=== PATIENT | male | born 1950 | race Caucasian/White ===

== ENCOUNTER 2019-11-01 07:09 | Day surgery (SDC) | payer OTHER ==
[~2019-11-01] VITALS: Ht 172.7 cm; Wt 77.6 kg
[~2019-11-01 07:09] MED LIST: ASPIRIN EC81 MG PO; FLEXERIL10 MG PO; IBUPROFEN200 MG PO; LISINOPRIL PO; NORCO 5-325 TA1 EACH PO; SYNTHROID137 MCG PO; TYLENOL325 MG PO; VALIUM5 MG PO
--- NOTE | 2019-11-01 08:41 | NUR ---
11/01/19 0841 Diana Roberts 0807 PATIENT ARRIVES TO PACU RESTING WITH EYES CLOSED. ANSWERS QUESTIONS APPROPRIATELY, BUT VERY DROWSY. RESP EVEN AND UNLABORED, ROOM AIR SATS >97%. PATIENT DENIES NEEDS THEN BACK TO SLEEP.
--- NOTE | 2019-11-01 12:20 | OR ---
[facility] [address], [place] [address] Signed DATE OF OPERATION: 11/01/2019 SURGEON: Hudson Maurer MD PREOPERATIVE DIAGNOSIS: Sister with colonic polyps, early 60s. POSTOPERATIVE DIAGNOSES: 1. A 5 mm polyp at 65 cm. 2. Minimal internal hemorrhoids. PROCEDURE: Colonoscopy with hot biopsy. ESTIMATED BLOOD LOSS: None. INDICATIONS: Nicolette is a 68-year-old gentleman, asked to see me for his initial colonoscopy. He told me his younger sister had colonic polyps removed in early 60s. He has no lower GI complaints. In the office, I gave him a pamphlet on colonoscopy and we looked at that together in detail. He understands the nature of the test along with the risks including, but not limited to gas bloating, crampy abdominal pain, bleeding, perforation requiring surgery, and missed diagnosis. We also reviewed the fact colonic polyps are grown, become cancer over 8-12 years. He understands that with his family history that he and his sister both should come every 5 years for repeat colonoscopies. We also reviewed the need for IV conscious sedation. He had expressed understanding and wished to proceed. DESCRIPTION OF PROCEDURE: Nicolette was taken into our endoscopy suite and placed in the left lateral decubitus position. He was given IV sedation with 3 mg of Versed and 100 mcg of fentanyl. A digital rectal exam was performed and he has a slightly enlarged and moderately indurated prostate gland. The left is more prominent than the right. The adult colonoscope was then introduced and advanced quite readily around into the cecum itself. His prep was quite good. We could easily see the appendiceal orifice and the ileocecal valve. The scope was slowly withdrawn. We saw a single polyp back at 65 cm. It was easily removed with the help of hot biopsy forceps. There was no diverticulosis. The rectum was unremarkable. Upon retroflexion of scope, he does have minimal internal hemorrhoid tissue. The gas was then suctioned out and the colonoscope removed. Nicolette Electronically Signed By: HUDSON MAURER MD 11/01/19 1220 PATIENT NAME: NICOLETTE URENA OPERATIVE REPORT DATE OF : 54 REPORT #: [id number] PHYSICIAN: HUDSON MAURER MD PCP: NANI ODONNELL MD REPORT IS CONFIDENTIAL AND NOT TO BE RELEASED WITHOUT AUTHORIZATION [facility] [address] [place] [id number] Signed tolerated the procedure quite well. RECOMMENDATIONS: I will see Nicolette back in my office in 7 to 14 days to review his results. He should consider a repeat colonoscopy every 5 years. Hudson Maurer MD ALB/MODL /[id number] cc: MD Dennis Cedeno MD Copies: HUDSON MAURER MD, TIMOTHY MD ~ Electronically Signed By: HUDSON MAURER MD 11/01/19 1220 PATIENT NAME: NICOLETTE URENA OPERATIVE REPORT DATE OF : 54 REPORT #: [id number] PHYSICIAN: HUDSON MAURER MD PCP: NANI ODONNELL MD REPORT IS CONFIDENTIAL AND NOT TO BE RELEASED WITHOUT AUTHORIZATION
== END 2019-11-01 09:50 | disposition home or self-care (01) ==
LOC: OPS 07:09 → DS 07:09 → OPS 08:15
PROVIDERS: Colon & Rectal Surgery
PROC: 0DBE8ZZ Excision of Large Intestine, Via Natural or Artificial Opening Endoscopic (ICD-10-PCS; principal; 2019-11-01 08:15)
DX: Z12.11 Encounter for screening for malignant neoplasm of colon (principal); D12.6 Benign neoplasm of colon, unspecified; K64.8 Other hemorrhoids; I10 Essential (primary) hypertension; E03.9 Hypothyroidism, unspecified; Z83.71 Family history of colonic polyps; Z79.899 Other long term (current) drug therapy
CPT/HCPCS: 88305; 99153; G0500; J2250; J3010; J7121

== ENCOUNTER 2022-11-05 14:48 | Observation (INO) | payer MEDICARE ==
[~2022-11-05] VITALS: Ht 172.7 cm; Wt 73.6 kg
--- OUTSIDE RECORDS SUMMARY | ~2022-11-05 | XMS | Continuity of Care Document ---
Demographics + + + | Address | [address] | | | [place] [address] | + + + | Preferred Language | Unknown | + + + | Marital Status | Never | + + + | Druze Affiliation | Unknown | + + + | Race | White | + + + | Ethnic Group | Unknown | + + + Author + + + | Author | [facility] | + + + | Organization | [facility] | + + + | Address | [address] [facility] | | | [place] [address] | + + + | Phone | | + + + Care Team Providers + + + + | Care Recovery Analyst Name | Role | Phone | + + + + Unavailable | Unavailable | + + + + Allergies and Intolerances + + + + + | date | description | facility | type | + + + + + | (no date) | No Known Allergies | [facility] | (unknown) | | | | | | + + + + + Encounters No information. Functional Status No information. Immunizations No information. Medications No information. Problems + + + + | date | description | facility | + + + + | 2022-11-03 15:01 | UNSPECIFIED ABDOMINAL PAIN | [facility] | | | | | + + + + | 2022-11-04 15:29 | UNSPECIFIED ABDOMINAL PAIN | [facility] | | | | | + + + + | 2022-11-04 15:29 | CHANGE IN BOWEL HABIT | [facility] | + + + + | 2022-11-04 15:30 | UNSPECIFIED ABDOMINAL PAIN | [facility] | | | | | + + + + | 2022-11-04 15:30 | CHANGE IN BOWEL HABIT | [facility] | + + + + | 2022-11-06 08:30 | UNSPECIFIED ABDOMINAL PAIN | [facility] | | | | | + + + + | 2022-11-06 08:30 | CHANGE IN BOWEL HABIT | [facility] | + + + + Procedures No information. Results/Labs No information. Social History No information. Vital Signs No information."
--- OUTSIDE RECORDS SUMMARY | ~2022-11-05 | XMS | Continuity of Care Document ---
Demographics + + + | Address | [address] [facility] [facility] | | | [place] [address] | + + + | Preferred Language | Unknown | + + + | Marital Status | Never | + + + | Jainism Affiliation | Unknown | + + + | Race | White | + + + | Ethnic Group | Unknown | + + + Author + + + | Author | [facility] | + + + | Organization | [facility] | + + + | Address | [address] [facility] | | | [place] [address] | + + + | Phone | | + + + Care Team Providers + + + + | Care Freight Traffic Consultant Name | Role | Phone | + [...]
--- OUTSIDE RECORDS SUMMARY | ~2022-11-05 | XMS | Continuity of Care Document ---
Demographics + + + | Address | [address] [facility] | | | [place] [address] | + + + | Preferred Language | Unknown | + + + | Marital Status | Never | + + + | Worship Affiliation | Unknown | + + + | Race | White | + + + | Ethnic Group | Unknown | + + + Author + + + | Author | [facility] | + + + | Organization | [facility] | + + + | Address | [address] [facility] | | | [place] [address] | + + + | Phone | | + + + Care Team Providers + + + + | Care Wilton Weaver Name | Role | Phone | + [...]
[2022-11-05] MEDS ORDERED: FAMOTIDINE20 MG PO (15:17)
[2022-11-05] MEDS ORDERED: TIZANIDINE HCL2 MG PO (15:17)
[2022-11-05] MEDS ORDERED: FLUTICASONE PRO16 GM NAS (16:51)
[2022-11-05] MEDS ORDERED: LEVOTHYROXINE150 MCG PO (16:52)
[2022-11-05 19:15] VITALS: BP 120/82
--- NOTE | 2022-11-05 19:43 | NUR ---
PATIENT ADMITTED TO [facility] ROOM 123. COMPLETED ADMISSION. GALLBLADDER BOOKLET PROVIDED. IV FLUIDS STARTED. PATIENT VERBALIZED DOES TAKE LISNOPRIL, UNSURE OF DOSE, WILL HAVE SIGNIFICANT OTHER BRING IN. FULL BODY ASSESSMENT COMPLETED, WNL. PATIENT RATES PAIN 0/10 ON PAIN SCALE AT THIS TIME.
--- NOTE | 2022-11-05 19:52 | NUR ---
IN ROOM TO HANG IV FLUIDS DIRECTED, IV SITE WNL. pt EDUCATED ON S/SX OF FLUID INFILTRATION, pt VERBALIZED UNDERSTANDING. NO ADDITIONAL NEEDS OR CONCERNS VERBALIZED, CALL LIGHT IN REACH. PRIMARY RN UPDATED.
[2022-11-05] MEDS ORDERED: ZESTRIL5 MG PO (20:44)
[2022-11-06] VITALS (8 sets, daily range): BP systolic 114–138; BP diastolic 63–89
--- NOTE | 2022-11-06 00:40 | NUR ---
PATIENT RESTING WITH EYES CLOSED. NO NEEDS AT THIS TIME. CALL LIGHT WITHIN REACH. PATIENT NPO STARTING AT MIDNIGHT. IV FLUIDS INFUSING.
--- NOTE | 2022-11-06 02:00 | NUR ---
PATIENT RESTING EASY WITH EYES CLOSED, APPEARS COMFORTABLE. CALL LIGHT WITHIN REACH NO OTHER NEEDS AT THIS TIME.
--- NOTE | 2022-11-06 04:00 | NUR ---
ADMINISTERED TORADOL IV PER MAR, PATIENT COMPLAINTS OF ASHLEY AND BACK PAIN. PAIN MEDICATION EFFECTIVE, PATIENT REPORTS ASHLEY AND BACK PAIN RESOLVED. CONSENT FOR SURGERY SIGNED. ANSWERED QUESTIONS ABOUT INFORMATION READ IN GALLBLADDER BOOKLET. PATIENT STATED " I AM FEELING NERVOUS ABOUT HAVING SURGERY" PROVIDED PATIENT WITH REASSURANCE. NO OTHER NEEDS AT THIS TIME.
--- NOTE | 2022-11-06 04:15 | NUR ---
ADMINISTERED PAIN MEDICATION PER MAR. PATIENT RATE PAIN 5/10 ON PAIN SCALE, STATES " MY BUTT IS THROBBING" GOOD URINE OUTPUT. PROVIDED FRESH ICE WATER. NO OTHER NEEDS AT THIS TIME.
--- NOTE | 2022-11-06 05:49 | NUR ---
ASSESSMENT DONE. LR WITH STRAIGHT TUBING HANGING IN ROOM. VS WNL. ANSWERED QUESTIONS AND CONCERNS. PATIENT RATES PAIN 0/10 ON PAIN SCALE. NO OTHER NEEDS AT THIS TIME. CALL LIGHT WITHIN REACH. ADMINISTERED SECOND DOSE OF IV ANCEF PER JUN.
--- NOTE | 2022-11-06 07:55 | NUR ---
Assisted Pt with updating contact phone number on white board in room. Call light left in reach. No other needs expressed by Pt.
--- NOTE | 2022-11-06 07:56 | NUR ---
RECIEVED SHIFT REPORT. PT AWAKE IN BED, AWAKE. DENIES ANY NEEDS AT THIS TIME. CALL LIGHT IN REACH
--- NOTE | 2022-11-06 09:46 | NUR ---
MORNING ASSESSMENT COMPLETE. PT AWAKE IN BED, DENIES PAIN OR NAUSEA. BOWEL TONES ACTIVE IN ALL QUADRANTS. TENDER IN RUQ. DENIES FURTHER NEEDS. CALL LIGHT IN REACH.
--- NOTE | 2022-11-06 13:21 | NUR ---
11/06/22 1321 Lynn Valadez 1259- PT ARRIVED TO PACU, SEMI RALPH POSITION, SNORING RESPIRATIONS. PT O2SATS 97% ON ROOM AIR, REQUIRING INTERMITTENT JAW THRUST. NO RESPONSE WITH STIMULI AT THIS TIME. PT PUPILS PIN POINT, CONTINUE TO MONITOR, LR INFUSING TO LFA IV. DRESSINGS INTACT TO ABD INCISION, CDI. MÓNICA DRAIN TO RLQ WITH SCANT AMOUNT OF SEROSANGINOUS FLUID. MONITORS IN PLACE, SCD'S BILATERALLY. ABD SOFT, NON DISTENDED. PT HEAD REPOSITIONED TO ASSIST AIRWAY. 1315- PT RESPONSIVE TO PAINFUL STIMULI, PT OPENS EYES AND MUMBLES WORDS THAT CAN BE RECOGNIZED. PT DENIES PAIN AND NAUSEA AT THIS TIME. ENCOURAGED TO TAKE DEEP BREATHS. CONTINUE TO MONITOR.
--- NOTE | 2022-11-06 13:48 | NUR ---
RECIEVED PT FROM SURGERY, BEDSIDE REPORT RECIEVED FROM MARCELA RAMIREZ. PT DENIES NAUSEA OR PAIN AT THIS TIME. PT IS DROWSY, EASY TO AROUSE. ABD HYPOACTIVE IN ALL QUADRANTS. DRESSINGS OVER SURGICAL SITES INTACT, SCANT SHADOWING NOTED. MÓNICA DRAIN INTACT. CPOX IN PLACE SPO2 95% ON RA. VSS. CALL LIGHT IN REACH.
--- NOTE | 2022-11-06 14:45 | NUR ---
RECEIVED REPORT ON PT. ASSISTED PT TO BATHROOM WITH URINAL. PT STEADY ON FEET.
--- NOTE | 2022-11-06 14:50 | NUR ---
POST OP ASSESSMENT COMPLETE. NO NEW CHANGES. VSS. CPOX AND SCDS IN PLACE. REPORTS PAIN IS DULL, REFUSED PAIN MEDS. CALL LIGHT IN REACH.
--- NOTE | 2022-11-06 15:50 | NUR ---
POST OP ASSESSMENT COMPLETE. PT RESTING IN BED, EYES CLOSED, EASY TO AROUSE. VSS. DENIES PAIN. DRESSING REMAIN INTACT. SMALL AMOUNT OF DRAINAGE NOTED TO LEFT INCISION SITE UNDER DRESSING. DENIES FURTHER NEEDS. TOLERATING WATER. CALL LIGHT IN REACH
--- NOTE | 2022-11-06 16:40 | NUR ---
spoke with pt. He denies needs. Lives with his and 3 children. Plans on dc to home when cleared medically. 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 States he is extremely active. Family will assist him. He is a and uses the [employer].
--- NOTE | 2022-11-06 17:14 | NUR ---
MED REC COMPLETE
--- NOTE | 2022-11-06 18:00 | HP ---
[facility] [address] [place], [place] [address] Signed ADMISSION DATE: 11/05/2022 REASON FOR ADMISSION: Acute calculous cholecystitis. HISTORY OF PRESENT ILLNESS: This 71-year-old white man presented to the emergency room upon recommendation of his primary care physician in [place]. He was seen on Thursday this week with complaints of right subscapular pain and recent heavy duty activity. He does work for a company from time to time. A CT scan was performed yesterday and said to have shown gallstones. His primary provider asked him to report to the emergency room for further assessment. The patient has been having pain in the right subcostal area as well as the right subscapular area for several days at least a week in fact. He did undergo a gallbladder ultrasound today, which showed multiple gallstones in the gallbladder with mild gallbladder wall thickening and a positive Russ sign. Bilateral renal cysts were noted as well, but there was no evidence of hydronephrosis. The patient has variable levels of discomfort, but the pain is persistent including the right subcostal and right subscapular area. He has been recommended for admission to anticipate cholecystectomy preferably tomorrow. Notably, the patient ate today. He has had no nausea or vomiting. He has had symptoms longstanding highly suggestive of biliary colic. PAST MEDICAL HISTORY: Notable for hypothyroidism as well as self described hypertension. He has had rotator cuff operation in the past and operation for kidney stones as well. He is a former smoker. ALLERGIES: He has no known drug allergies. CURRENT MEDICATIONS: Include tizanidine 2 mg as well as famotidine 20 mg p.o. b.i.d. He also takes Synthroid unknown dose, but probably 150 mcg p.o. daily. He says he has taken an antihypertensive, but it is not listed in his medical record nor in the pharmacy record. Electronically Signed By: DAVID TORRES MD 11/06/22 1800 PATIENT NAME: NICOLETTE URENA HISTORY AND PHYSICAL DATE OF : 54 REPORT #: [id number] PHYSICIAN: DAVID TORRES MD PCP: LATOYA PINO DO REPORT IS CONFIDENTIAL AND NOT TO BE RELEASED WITHOUT AUTHORIZATION [facility] [address] [place] [id number] Signed SOCIAL HISTORY: He is , lives in [place]. 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 That will be clarified in time. He does have several children, who live with him, one or two that have autism and another that has other issues or dysfunction. He is . REVIEW OF SYSTEMS: He denies any dysphagia or hematemesis. No blood per rectum. No nausea or vomiting. He does have persistent pain in the subscapular area in the right as well as less pain, but persistent pain in the right subcostal area. PHYSICAL EXAMINATION: GENERAL: This is a bearded white man, who looks to be fit and healthy. 5 feet 8 inches in height, 273.6 kg with a BMI of 24.7. HEENT: Trachea is midline. He has a significant overbite. He is able to open his mouth very widely. Mucous membranes are moist. CHEST: Clear. HEART: Regular without murmur. Trachea is midline. ABDOMEN: Nondistended. He has mild tenderness in right subcostal area. There is no palpable mass and he has no ascites. EXTREMITIES: Show no clubbing, cyanosis, or edema. LABORATORY STUDIES: Show a white count of only 8.1, hematocrit 40.5, platelets 231,000. Chem profile is essentially normal. Creatinine is elevated at 1.22. Liver enzymes are normal, bilirubin also normal at 0.5, lipase normal at 120. I have reviewed his ultrasound in detail. Gallstones are quite obvious. CT scan of the abdomen performed on November 04 (yesterday) confirmed gallstones with some suggestive acute cholecystitis and bilateral renal lesions demonstrating internal density variability. They are most consistent with benign cyst. He has a large hiatal hernia and bilateral inguinal hernias with fat and without hollow viscus. My review of the CT scan shows large stones and a thickened gallbladder wall. ASSESSMENT: The patient has acute calculous cholecystitis and rather typical biliary colic symptoms leading up to today. The patient was somewhat ambivalent about being admitted to the hospital for further treatment. I strongly recommended this. We can initiate IV antibiotics, parenteral pain medication, anticipating cholecystectomy tomorrow, preferably by laparoscopic approach. The risk of bleeding, infection, bile duct injury, need for open procedure, need for common duct exploration and other unforeseen complications were all reviewed in detail. He understands and agrees to proceed. Electronically Signed By: DAVID TORRES MD 11/06/22 1800 PATIENT NAME: NICOLETTE URENA HISTORY AND PHYSICAL DATE OF : 54 REPORT #: [id number] PHYSICIAN: DAVID TORRES MD PCP: LATOYA PINO DO REPORT IS CONFIDENTIAL AND NOT TO BE RELEASED WITHOUT AUTHORIZATION [address] [address] Signed We will plan to initiate Ancef antibiotic and Pepcid intravenously administered. Monitoring his blood pressure and treating as appropriate. Notably, his blood pressure in the emergency room has been quite acceptable and the degree to which ongoing problem is uncertain. MD JAYANT Rene/ERISL /[id number] cc: Cecil Argueta MD Copies: CECIL ARGUETA MD ~ Electronically Signed By: DAVID TORRES MD 11/06/22 1800 PATIENT NAME: NICOLETTE URENA HISTORY AND PHYSICAL DATE OF : 54 REPORT #: [id number] PHYSICIAN: DAVID TORRES MD PCP: LATOYA PINO DO REPORT IS CONFIDENTIAL AND NOT TO BE RELEASED WITHOUT AUTHORIZATION
--- NOTE | 2022-11-06 18:30 | NUR ---
ROUNDED ON PT. EMPTIED MÓNICA DRAIN. TOOK PT FOOD TRAY. CALL LIGHT WITHIN REACH NO FURTHER NEEDS VOICED.
--- NOTE | 2022-11-06 20:00 | NUR ---
PT assesed, complains of mild pain after getting up to use the bathroom. Noted RUQ incision was bloody ( half the dressing saturated) Will continue to monitor. head of stock notified to look at it.
--- NOTE | 2022-11-06 20:47 | NUR ---
VITALS DOCUMENTED. PT REQUESTED TO GO TO THE BATHROOM. PT WAS A SBA TO THE BATHROOM AND USED THE URINAL. PT STATED THE INCISION REGION IS "SORE". TAMIA RN, IN TO GIVE MEDICATION AND DOCUMENT I&Os.
[2022-11-07 01:17] VITALS: BP 114/69
[2022-11-07 05:09] VITALS: BP 128/84
--- NOTE | 2022-11-07 07:43 | NUR ---
RECIEVED SHIFT REPORT. PT AWAKE IN BED, DENIES ANY DISCOMFORTS. ASSESSED INCISION SITE WITH MARCELA CANTRELL. DRESSING INTACT, DRAINAGE NOTED, 50% OF DRESSING. STERI STRIPS INTACT. MÓNICA DRAIN INTACT, SMALL DRAINAGE NOTED TO DRESSING. CALL LIGHT IN REACH.
--- NOTE | 2022-11-07 09:39 | NUR ---
MORNING ASSESSMENT COMPLETE. PT AWAKE IN BED. BRIAN IN ROOM REMOVED DRESSING OVER INCISION SITE AND MÓNICA. CLEAN STERI STRIPS APPLIED TO INCISION SITE PER BRIAN VERBAL ORDER. BOWEL TONES ACTIVE IN ALL QUAD. TENDER. PT STATES 5/10 PAIN, REFUSES PAIN MEDICATION AND WANTS TO JUST RELAX. PT IS WILLING TO WALK LATER. DENIES FURTHER NEEDS. CALL LIGHT IN REACH.
[2022-11-07 10:06] VITALS: BP 1212/82
--- NOTE | 2022-11-07 11:15 | NUR ---
patient complains of 4/10 abd pain, prn pain medication administered (per emar). patrice drained- 30ml serousang in color. denies further needs at this time.
--- NOTE | 2022-11-07 11:52 | NUR ---
PT IN BED. TALKED AT LENGTH OF HIS INVOLVEMENT WITH YARSANI SIKHISM. EXPRESSED HOPE FOR HEALING. WE PRAYED FOR HEALING AND RETURN OF STRENGTH. REQUESTED BED MACHINE OPERATOR VISIT WHICH I RELAYED VIA NOTE IN SACRISTRY PER USUAL PROCEDURE.
--- NOTE | 2022-11-07 12:00 | NUR ---
REPORT RECEIVED FROM MARCELA STAUFFER. PT SITTING UP IN BED. PT RESPONDS WHEN ADDRESSED. PT DENEIS ANY NEEDS AT THIS TIME. CALL LIGHT IN REACH.
--- NOTE | 2022-11-07 13:17 | NUR ---
IN TO ANSWER CALL LIGHT. PT REPORTING SCD PUMP ALARMING, RESOLVED. PT REPOTS GETTING UP TO USE RESTROOM AND REPLACING SCD's BY SELF. URINAL EMPTIED. PT STATES "I FEEL LIKE I NEED TO HAD A BM, BUT NOTHING IS HAPPENING." ASKED PT IF PT HAS PASSED ANY GAS AND PT STATES "ONLY BURPING, NOTHING ELSE." ASSESSMENT COMPLETE. LUNG SOUNDS CLEAR. BOWEL TONES ACTIVE. MILD ABD DISTENTION NOTED. ABD FIRM TO TOUCH. ABD TENDER. RUQ SURGICAL SITE DRESSING OF STERI-STRIPS D/I WITH SMALL AMOUNT OF SHADOWING NOTED. UMBILICUS DRESSING D/I WITH SMALL AMOUNT OF SHADOWING NOTED. RLQ MÓNICA DRAIN WITH GAUZE PAD OVER SITE C/D/I. MÓNICA EMPTIED 10ML OF SEROSANGUINEOUS FLUID. VITALS AND I&Os COMPLETE. PRN MOTRIN ADMINISTERED, SEE MAR. NEW BAG OF FLUIDS STARTED, SEE MAR. PT DENIES ANY OTHER NEEDS AT THIS TIME. CALL LIGHT IN REACH.
[2022-11-07 13:28] VITALS: BP 122/76
--- NOTE | 2022-11-07 15:30 | NUR ---
PT AMBULATING MCRAE WITH MARCELA RENEE. NO NEEDS FROM THIS RN AT THIS TIME.
--- NOTE | 2022-11-07 16:11 | NUR ---
IN TO ROUDN ON PT. PT REPORTING PAIN 5/10 IN ABD. PT DENIES ANYTHING FOR PAIN WHEN OFFERED. PT DENIES HOT/ICE PACK WHEN OFFERED. PROVIDED PT PILLOW FOR ABD. PT DENIES ANY OTHER NEEDS AT THIS TIME. CALL LIGHT IN REACH.
[2022-11-07 17:24] VITALS: BP 136/85
[2022-11-07 20:03] VITALS: BP 127/78
--- NOTE | 2022-11-07 21:26 | NUR ---
Pt says pain is still present, and tenderness present. ABD distended compared to yesterday. Gave ibuprofen, tizanadine. will continue to monitor.
--- NOTE | 2022-11-08 02:08 | NUR ---
Took pt to the bathroom, pt passed a lot of gas. Walked with patient around the unit 2 laps. Abd slightly more softer, pain still present, gave tylenol and ibuprofen. Trying to avoid opoids if possible.
--- NOTE | 2022-11-08 07:26 | NUR ---
RECEIVED REPORT FROM [facility] NURSE. PT IS UP TO CHAIR IN ROOM. STATES HE IS PASSING GAS. MÓNICA DRAIN INTACT. CALL LIGHT WITHIN REACH.
--- NOTE | 2022-11-08 08:20 | NUR ---
PT ASSESSMENT AND MEDICATION ADMINISTRATION COMPLETED. PT IS A/O, RESPIRATIONS EVEN AND REGULAR. PT STATES HE CONTINUES TO PASS GAS, NO BM, ABDOMEN REMAINS FIRM BUT PT STATES IT HAS DECREASED. MÓNICA DRAIN INTACT. HAS HAD 70ML OUTPUT THIS MORINING. CALL LIGHT WITHIN REACH.
[2022-11-08 09:29] VITALS: BP 122/69
[2022-11-08] MEDS ORDERED: OXYCODON-ACETA1 EAC2 PO (10:24)
[2022-11-08] MEDS ORDERED: ACETAMINOPHEN500 MG PO (10:24)
[2022-11-08] MEDS ORDERED: IBUPROFEN600 MG PO (10:24)
--- NOTE | 2022-11-08 10:33 | NUR ---
AT BEDSIDE. MÓNICA DRAIN REMOVED. PT PLANS TO DC TODAY. CALL LIGHT WITHIN REACH.
--- NOTE | 2022-11-08 11:02 | OR ---
[facility] [address], [place] [address] Signed DATE OF OPERATION: 11/06/2022 SURGEON: David Torres MD PREOPERATIVE DIAGNOSIS: Acute calculous cholecystitis; long-standing chronic subscapular and right subcostal pain. POSTOPERATIVE DIAGNOSIS: Severe acute on chronic calculous cholecystitis. PROCEDURE: 1. Laparoscopic cholecystectomy with conversion to open operation (prolonged, complicated, difficult). 2. Surgeon-directed fluoroscopy with intraoperative cholangiogram. ANESTHESIA: General endotracheal, Noah Leonard, VISUAL BASIC PROGRAMMER and local 10 mL of 0.25% Marcaine with epinephrine. INDICATION: This 71-year-old white man is a patient of Dr. Latoya Pino in [place]. The patient has had long-standing chronic back pain including right subscapular pain and more recently increasing right subcostal pain. He underwent a CT scan under the direction of Dr. Pino, which showed probable acute cholecystitis and he was directed to be seen at the ER. Evaluation there by Dr. Argueta included a gallbladder ultrasound confirming multiple gallstones. The patient does have mild tenderness in the right subcostal area, but his dominant complaints now and previously has been subscapular pain on the right side. He has been admitted, given intravenous antibiotics, parenteral pain medication and so forth, and recommended to undergo cholecystectomy preferably by laparoscopic approach. He understands the risk of bleeding, infection, bile duct injury, need for open procedure, failure to cure his symptoms and other unforeseen complications and wished to proceed. FINDINGS: Impressive acute on chronic cholecystitis was noted. The gallbladder was quite tense and distended and inflamed and markedly thickened. Decompression of the gallbladder was undertaken showing clear bile. The infundibulum and surrounding structures were absolutely fused within the alysha hepatis for which a cholecystectomy by laparoscopic approach would be quite impossible and on that basis, open cholecystectomy was Electronically Signed By: DAVID TORRES MD 11/08/22 1102 PATIENT NAME: NICOLETTE URENA OPERATIVE REPORT DATE OF : 54 REPORT #: [id number] PHYSICIAN: DAVID TORRES MD PCP: LATOYA PINO DO REPORT IS CONFIDENTIAL AND NOT TO BE RELEASED WITHOUT AUTHORIZATION [facility] [address] [place], [place] [address] Signed performed. Even open cholecystectomy was challenging, but was accomplished safely noting multiple large gallstones, one of which was wedged in the infundibulum. Intraoperative cholangiogram, however, was completely normal. The liver was normal otherwise. DESCRIPTION OF PROCEDURE: The patient was brought to the operating room, given a general endotracheal anesthetic. Preoperative antibiotic, Ancef was given. Sequential compression device stockings were used and heparin subcutaneously administered. The abdomen was clipped and prepared with a chlorhexidine solution and draped sterilely. The patient did not have excessive abdominal wall body fat. An infraumbilical incision was made and using an open Tj cannula technique pneumoperitoneum was achieved to a level of 14 mmHg of carbon dioxide gas. Intra-abdominal inspection showed no sign of ascites or carcinomatosis. The gallbladder was obscured from view noting dense adhesions of omentum to the upper quadrant on the right side. Three additional trocars were placed in usual configuration in the subxiphoid, right midclavicular, and right anterior axillary line. This allowed for manipulation of the omentum which was draped over the gallbladder. It is found to be densely adherent to it. With various manipulations predominantly with blunt dissection, the omentum could be more fully freed from the gallbladder. The gallbladder was quite thickened and markedly inflamed and distended and unable to be grasped in the usual way. On that basis, laparoscopic trocar decompression was undertaken of the gallbladder, which showed dark bile, predominantly though, there was clear bile at the end. This allowed for the gallbladder to be grasped and elevated cephalad. Despite this severely dense inflammation, omental adhesions to the gallbladder in the midportion and ultimately to the infundibulum was noted. The duodenum could be identified, but was nearly fused with the gallbladder. Careful manipulation with blunt electrocautery dissection was undertaken and the duodenum was largely freed from the gallbladder. However, the alysha hepatis was one thickened and fused plate with the gallbladder and therefore a laparoscopic approach was deemed inadvisable. The trocars removed under direct visualization and the infraumbilical incision was reapproximated with interrupted 0 Vicryl suture. A right subcostal incision was made for open cholecystectomy connecting at least one of the trocar sites. Dissection was carried through the subcutaneous tissue with electrocautery. Additionally incising the anterior rectus sheath, the rectus muscle and the posterior rectus sheath and its attended peritoneum. The abdomen was then entered. Marked inflammation in infundibulum area and the alysha hepatis was noted. The Bookwalter retractor was affixed to the table providing good exposure. A ring clamp was applied to the apex of the gallbladder and the thickened peritoneum was incised with electrocautery and with meticulous care, blunt dissection and cautery dissection was used to free the gallbladder down to the area of the infundibulum. The infundibulum was not well defined, but ultimately was found to be directed directly into the alysha hepatis at a right angle. Further dissection was Electronically Signed By: DAVID TORRES MD 11/08/22 1102 PATIENT NAME: NICOLETTE URENA OPERATIVE REPORT DATE OF : 54 REPORT #: [id number] PHYSICIAN: DAVID TORRES MD PCP: LATOYA PINO DO REPORT IS CONFIDENTIAL AND NOT TO BE RELEASED WITHOUT AUTHORIZATION [facility] [address] [place], [place] [address] Signed undertaken with meticulous care. The assistance of headlight and loupe magnification as usual. With Kittner dissecting devices blunt and electrocautery dissection. Ultimately, the infundibulum was well defined, which made a right angle to the gallbladder itself ultimately leading to the cystic duct. Stones were wedged into the infundibulum quite markedly. Ultimately, the cystic duct was well defined. A right angle clamp was used to milk any stone debris back into the gallbladder and the cystic duct transected transversely. The gallbladder was taken out and multiple gallstones that had been in the gallbladder were photographed in conjunction with the gallbladder itself. There was no sign of neoplasm associated with the gallbladder. Clear and normal bile was noted to egress from the cystic duct. Using a HIDA catheter, intraoperative cholangiography was then undertaken. Free flow of contrast was noted into the cystic duct and into the biliary tree and prompt emptying into the duodenum without sign of filling defect. Retrograde filling of the common hepatic duct was noted. There was no sign of anomaly or other problem. The catheter was then removed after re-assembling the Bookwalter device for exposure and a small cystic arterial branch dissected free from the cystic duct and doubly clipped with small clips. Ultimately, the dominant cystic duct clipped with large clips. Irrigation was undertaken. Hemostasis was good overall. Through a right-sided trocar site, a 7 mm flat Van drain was placed in the subhepatic space. The omentum was allowed to reapply to the subhepatic space. Attention was then turned toward closure. The posterior sheath and its attendant peritoneum were reapproximated with running PDS suture. The muscular layer was irrigated. The anterior rectus sheath similarly closed and subcutaneous tissue irrigated and the skin closed with running subcuticular 3-0 Vicryl. The trocar sites that remained were irrigated and closed with interrupted 3-0 Vicryl. A 10 mL of 0.25% Marcaine with epinephrine was injected into the incision sites for postoperative analgesic benefit. The operation was prolonged, complicated, and difficult. Based on severity of disease, it was accomplished safely. MD JAYANT Rene/MODL /[id number] Electronically Signed By: DAVID TORRSE MD 11/08/22 1102 PATIENT NAME: NICOLETTE URENA OPERATIVE REPORT DATE OF : 54 REPORT #: [id number] PHYSICIAN: DAVID TORRES MD PCP: LATOYA PINO DO REPORT IS CONFIDENTIAL AND NOT TO BE RELEASED WITHOUT AUTHORIZATION [facility] [address], [place] [address] Signed cc: DO Raffy Hernandez MD Copies: NAT ARGUETA MD ~ Electronically Signed By: DAVID TORRES MD 11/08/22 1102 PATIENT NAME: NICOLETTE URENA OPERATIVE REPORT DATE OF : 54 REPORT #: [id number] PHYSICIAN: DAVID TORRES MD PCP: LATOYA PINO DO REPORT IS CONFIDENTIAL AND NOT TO BE RELEASED WITHOUT AUTHORIZATION
[2022-11-08 11:14] VITALS: BP 136/86
--- NOTE | 2022-11-10 14:57 | DS ---
[facility] [address] [place], [place] [address] Signed ADMISSION DATE: 11/05/2022 DISCHARGE DATE: 11/08/2022 REASON FOR ADMISSION: This 71-year-old white man presented to the emergency room upon recommendation of his primary care physician in [place], Dr. Latoya Pino DO. 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 A CT scan was performed, which confirmed a high probability of acute cholecystitis and he was directed to the emergency room here for further evaluation and treatment. He was evaluated by Dr. Argueta, whose evaluation included a gallbladder ultrasound in addition to CT scan that had been obtained recently. The ultrasound showed multiple gallstones in the gallbladder with mild gallbladder wall thickening and positive sonographic Russ sign. He was admitted for further evaluation and care. PERTINENT PHYSICAL EXAMINATION: GENERAL: Showed healthy white man, who looked to be in no significant distress particularly. VITAL SIGNS: Temperature is 98.4, blood pressure 127/78. NECK: Trachea is midline. CHEST: Clear. HEART: Regular without murmur. ABDOMEN: Nondistended. There is mild tenderness in right subcostal areas. No palpable mass. He had no ascites. EXTREMITIES: Show no clubbing, cyanosis, or edema. LABORATORY STUDIES: At presentation showed white count of 8.1, hematocrit 40.5, and platelets are 231,000. Chem profile essentially normal. Liver enzymes were normal, bilirubin 0.5. IMAGING DATA: Review of the CT scan and ultrasound confirmed multiple gallstones and diffusely inflamed area of the alyhsa hepatis. HOSPITAL COURSE: The patient was admitted, given intravenous fluid resuscitation, IV antibiotics and underwent operation on November 06, 2022. A laparoscopic approach was anticipated. The gallbladder was far more inflamed than had been anticipated clinically; decompression of gallbladder was required. There were dense omental adhesions to the gallbladder. The Electronically Signed By: DAVID TORRES MD 11/10/22 1457 PATIENT NAME: NICOLETTE URENA DISCHARGE SUMMARY DATE OF : 54 REPORT #: [id number] PHYSICIAN: DAVID TORRES MD PCP: LATOYA PINO DO REPORT IS CONFIDENTIAL AND NOT TO BE RELEASED WITHOUT AUTHORIZATION [facility] [address] [place], [place] [address] Signed gallbladder was found to have essentially no discernible plane in the area of the infundibulum in relation to the duodenum and alysha hepatis. On that basis, conversion to open operation was required. The operation was prolonged, complicated, difficult but accomplished safely with complete cholecystectomy as well as cholangiogram (which was normal). He had multiple large gallstones within the gallbladder wall, a very thickened gallbladder and a gallbladder, which would essentially be impossible to excise laparoscopically. A drain was placed. He had no bile leak or other problem. His postoperative course was unremarkable. He had progressive improvement, advanced to a regular diet on the first postoperative day. It was sore enough that he stayed an additional day and was able to be discharged on postop day#2. The drain that was placed showed no sign of bile leak or other problem and had only serous fluid by the day of discharge and was removed. FOLLOWUP: He is advised to lift no more than 20 pounds for the next four weeks. He will keep Steri-Strips in place. He should walk on a daily basis, but with no more than 20 pounds for four weeks. He will call on Thursday to schedule a followup appointment for four weeks more or less. DISCHARGE MEDICATIONS: 1. Motrin 600 mg p.o. q.6 hours as needed for pain #60, no refill. 2. Percocet 7.5/325, 1-2 p.o. q.6 hours p.r.n. pain, #10. 3. Tylenol Plain 500 mg two tablets p.o. q.6 hours as needed for pain #60, no refill. 4. He will continue his usual medication of Synthroid 150 mcg p.o. daily and lisinopril 5 mg p.o. daily. DISCHARGE DIAGNOSES: 1. Severe [id number] calculous cholecystitis, status post laparoscopic cholecystectomy with conversion to open cholecystectomy and cholangiogram on November 06, 2022. 2. Hypothyroidism. 3. Hypertension. David Torres MD Electronically Signed By: DAVID TORRES MD 11/10/22 1457 PATIENT NAME: NICOLETTE URENA DISCHARGE SUMMARY DATE OF : 54 REPORT #: [id number] PHYSICIAN: DAVID TORRES MD PCP: LATOYA PINO DO REPORT IS CONFIDENTIAL AND NOT TO BE RELEASED WITHOUT AUTHORIZATION [address] [address] Signed JAYANT/MICHELLE /[id number] cc: MD Latoya Hawk DO Copies: NAT ARGUETA MD ~ Electronically Signed By: DAVID TORRES MD 11/10/22 1457 PATIENT NAME: NICOLETTE URENA DISCHARGE SUMMARY DATE OF : 54 REPORT #: [id number] PHYSICIAN: DAVID TORRES MD PCP: LATOYA PINO DO REPORT IS CONFIDENTIAL AND NOT TO BE RELEASED WITHOUT AUTHORIZATION
--- NOTE | 2022-11-11 17:59 | PATH ---
[facility] [address] [place], [place] [address] Signed SPECIMEN(S): A GALLBLADDER AND STONES SPECIMEN SOURCE: A. GALLBLADDER AND STONES CLINICAL HISTORY: Cholecystitis, cholelithiasis. Acute calculous cholecystitis. FINAL PATHOLOGIC DIAGNOSIS: Gallbladder and stones: - Acute and chronic calculous cholecystitis. - Focal mucosal necrosis. JVR:vani:C2NR MICROSCOPIC EXAMINATION: Histologic sections of all submitted blocks are examined by light microscopy. These findings, together with the gross examination, support the pathologic diagnosis. GROSS DESCRIPTION: The specimen, labeled and designated "Thomasbarriearmando Cydney" and designated on the requisition "gallbladder and stones," is received in formalin and consists of Specimen: Markedly disrupted gallbladder. Dimensions: 9.2 x 4.0 x 3.5 cm. Serosa: Germain to red-brown, roughened. Cystic Duct: Received disrupted, obstruction cannot be determined, margin inked black and shaved. Calculi: Multiple brown irregularly-shaped calculi (1.2 to 2.0 cm in greatest dimension and 5.0 x 4.0 x 2.3 cm in aggregate). Mucosa: Red-brown, roughened and trabeculated. Wall thickness: 1.0 cm. Lymph node: No pericystic lymph nodes are grossly identified. Additional: None. Swinging Cut Off Saw Operator sections are submitted in (A1). AC (under the direct supervision of a pathologist) The Gross Description was prepared using a voice recognition system. The report was reviewed for accuracy; however, sound-alike word errors, addition and/or deletions may occur. If there is any question about this report, please contact Client Services. PATIENT NAME: NICOLETTE URENA PATHOLOGY DATE OF : 54 REPORT #: [id number] PHYSICIAN: SHEELA AHMADI PCP: LATOYA PINO DO REPORT IS CONFIDENTIAL AND NOT TO BE RELEASED WITHOUT AUTHORIZATION [facility] [address] [facility] [place] [address] Signed PERFORMING LABORATORY: Technical component was performed by [facility], [address] [place] [address] (CLIA# [id number]). Professional interpretation was performed by [facility] - [address] [address] (CLIA#: [id number]). Diagnostician: Genaro Hatch MD Pathologist Electronically Signed 11/11/2022 Copies: ~ PATIENT NAME: NICOLETTE URENA PATHOLOGY DATE OF : 54 REPORT #: [id number] PHYSICIAN: SHEELA AHMADI PCP: LATOYA PINO DO REPORT IS CONFIDENTIAL AND NOT TO BE RELEASED WITHOUT AUTHORIZATION
== END 2022-11-08 11:35 | disposition home or self-care (01) ==
LOC: ED 14:48 → MS 14:49
PROVIDERS: ADMIT Surgery; ATTEND Surgery
PROC: 0FT40ZZ Resection of Gallbladder, Open Approach (ICD-10-PCS; principal; 2022-11-05)
PROC: 0FJ44ZZ Inspection of Gallbladder, Percutaneous Endoscopic Approach (ICD-10-PCS; 2022-11-05)
PROC: BF141ZZ Fluoroscopy of Gallbladder, Bile Ducts and Pancreatic Ducts using Low Osmolar Contrast (ICD-10-PCS; 2022-11-05)
DX: K80.12 Calculus of gallbladder with acute and chronic cholecystitis without obstruction (principal); I10 Essential (primary) hypertension; E03.9 Hypothyroidism, unspecified; Z87.891 Personal history of nicotine dependence; Z79.899 Other long term (current) drug therapy; Z53.31 Laparoscopic surgical procedure converted to open procedure
CPT/HCPCS: 00790; 36415; 74300; 76705; 76775; 80053; 83690; 85025; 88304; 94762; 96372; 96374; 96375; 96376; 99285 25; A9270; G0378; J0131; J0690; J1100; J1644; J1885; J2001; J2270; J2405; J2704; J3010; J3490; J7121; Q9967